=== PATIENT | female | born 1970 | race Caucasian/White ===

== ENCOUNTER 2016-10-14 08:11 | Emergency (ER) | payer OTHER ==
[~2016-10-14] VITALS: Wt 79.4 kg
[~2016-10-14 08:11] MED LIST: MOTRIN800 MG PO; NKHM; PEN-VEE K500 MG PO
[2016-10-14] MEDS ORDERED: LAMOTRIGINE100 MG PO (08:16)
[2016-10-14] MEDS ORDERED: PANTOPRAZOLE SO40 MG PO (08:16)
[2016-10-14] MEDS ORDERED: LEVOTHYROXINE0.1 M1 PO (08:16)
[2016-10-14 08:19] VITALS: BP 128/68
[2016-10-14 08:53] LABS: BASO % 0.6 % (0.0-1.0); EOS # 0.2 10*3/uL (0.0-0.4); EOS % 2.3 % (1.0-4.0); HEMATOCRIT 39.6 % (37.0-47.0); HEMOGLOBIN 13.1 g/dl (12.0-16.0); LYMPH # 2.8 10*3/uL (1.3-4.4); LYMPH % 43.5 % (27.0-41.0); MEAN CELL VOLUME 93.8 fl (81.0-99.0); MEAN CORPUSCULAR HGB CONC 33.1 g/dl (33.0-37.0); MEAN PLATELET VOLUME 9.7 fl (9.6-12.3); MONO # 0.4 10*3/uL (0.1-1.0); MONO % 6.3 % (3.0-9.0); NEUT # 3.1 10*3/uL (2.3-7.9); NEUT % 47.1 % (47.0-73.0); PLATELET COUNT AUTOMATED 341 10*3/uL (130-400); RED BLOOD COUNT 4.22 10*6/uL (4.10-5.10); RED CELL DISTRI WIDTH 14.3 % (0-14.5); WHITE BLOOD COUNT 6.5 10*3/uL (4.8-10.8)
[2016-10-14 09:08] LABS: ALBUMIN 3.6 gm/dl (3.1-4.5); ALKALINE PHOSPHATASE 84 U/L (45-117); BILIRUBIN, TOTAL 0.4 mg/dl (0.2-1.0); BUN 8 mg/dl (7-24); CARBON DIOXIDE 24 mmol/L (21-32); CHLORIDE 108 mmol/L (98-107); EST GLOM FILT AFRICAN AMERICAN > 60 ml/min; GLUCOSE 96 mg/dL (65-99); POTASSIUM 3.8 mmol/L (3.5-5.1); SGOT/AST 22 IU/L (3-35); SGPT/ALT 34 U/L (12-78); SODIUM 141 mmol/L (136-145)
[2016-10-14 09:20] LABS: BILIRUBIN NEGATIVE (NEGATIVE); BLOOD NEGATIVE (NEGATIVE); CLARITY CLEAR (CLEAR); COLOR YELLOW (YELLOW); GLUCOSE NEGATIVE (NEGATIVE); KETONE NEGATIVE (NEGATIVE); LEUKO ESTERASE NEGATIVE (NEGATIVE); NITRITE NEGATIVE (NEGATIVE); PH 6.5 (5.0-9.0); PROTEIN NEGATIVE (NEGATIVE); SPECIFIC GRAVITY <= 1.005 (1.005-1.030); UROBILINOGEN 0.2 E.U./dl (0.2-1.0)
[2016-10-14 09:31] LABS: RBC 0-2 rbc/hpf (0-2); URINE REFLEX COMMENT NO (NO); WBC 0-2 wbc/hpf (0-5)
== END 2016-10-14 10:19 | disposition home or self-care (01) ==
LOC: ED 08:11
PROVIDERS: Emergency Medicine
DX: R10.13 Epigastric pain (principal); M54.6 Pain in thoracic spine; F17.200 Nicotine dependence, unspecified, uncomplicated; Z88.6 Allergy status to analgesic agent; Z90.49 Acquired absence of other specified parts of digestive tract

== ENCOUNTER 2016-12-31 18:05 | Emergency (ER) | payer OTHER ==
[~2016-12-31] VITALS: Ht 165.1 cm; Wt 86.2 kg
[~2016-12-31 18:05] MED LIST changes: +LAMOTRIGINE100 MG PO; +LEVOTHYROXINE0.1 M1 PO; +PANTOPRAZOLE SO40 MG PO
[2016-12-31 18:16] VITALS: BP 115/71
[2016-12-31] MEDS ORDERED: ABILIFY5 MG PO (18:18)
[2016-12-31] MEDS ORDERED: NAPROSYN500 MG PO (18:30)
== END 2016-12-31 19:43 | disposition home or self-care (01) ==
LOC: ED 18:05
DX: S86.111A Strain of other muscle(s) and tendon(s) of posterior muscle group at lower leg level, right leg, initial encounter (principal); F17.200 Nicotine dependence, unspecified, uncomplicated; Z88.6 Allergy status to analgesic agent; Z90.49 Acquired absence of other specified parts of digestive tract; X58.XXXA Exposure to other specified factors, initial encounter; Y93.89 Activity, other specified; Y92.9 Unspecified place or not applicable; Y99.9 Unspecified external cause status

== ENCOUNTER 2017-12-28 12:32 | Emergency (ER) | payer OTHER ==
[~2017-12-28] VITALS: Ht 157.4 cm; Wt 79.4 kg
[2017-12-28 12:32] VITALS: BP 132/62
[~2017-12-28 12:32] MED LIST changes: +ABILIFY5 MG PO; +NAPROSYN500 MG PO
[2017-12-28] MEDS ORDERED: TOBRADEX 0.1%-0.5 ML OPH (12:54)
== END 2017-12-28 12:59 | disposition home or self-care (01) ==
LOC: ED 12:32
DX: H10.31 Unspecified acute conjunctivitis, right eye (principal); Z88.6 Allergy status to analgesic agent; Z79.899 Other long term (current) drug therapy

== ENCOUNTER 2021-02-08 15:23 | Emergency (ER) | payer OTHER ==
[~2021-02-08] VITALS: Wt 63.5 kg
[~2021-02-08 15:23] MED LIST changes: +ELIMITE 5%60 GM T; +PREDNISONE20 M1 PO; +TOBRADEX 0.1%-0.5 ML OPH; +VALTREX1000 MG PO
[2021-02-08 15:35] VITALS: BP 107/65
[2021-02-08] MEDS ORDERED: ZITHROMAX250 MG PO (17:35)
== END 2021-02-08 17:38 | disposition home or self-care (01) ==
LOC: ED 15:23
DX: J98.8 Other specified respiratory disorders (principal); Z20.822 Contact with and (suspected) exposure to COVID-19; Z98.51 Tubal ligation status; Z90.49 Acquired absence of other specified parts of digestive tract; Z79.899 Other long term (current) drug therapy

== ENCOUNTER 2021-07-15 17:59 | Emergency (ER) | payer OTHER ==
[~2021-07-15] VITALS: Wt 68.0 kg
[~2021-07-15 17:59] MED LIST changes: +ZITHROMAX250 MG PO
[2021-07-15 18:04] VITALS: BP 111/67
[2021-07-15 18:45] LABS: BILIRUBIN Negative (Negative); BLOOD 1+ (Negative); CLARITY Cloudy (Clear); COLOR Dark Yellow (Yellow); GLUCOSE Negative (Negative); KETONE Trace (Negative); LEUKO ESTERASE 2+ (Negative); NITRITE Positive (Negative); PH 5.5 (4.5-8.0); SPECIFIC GRAVITY 1.025 (1.001-1.030)
[2021-07-15 18:45] LABS: BASO % 0.2 % (0.0-1.0); EOS % 0.3 % (1.0-4.0); HEMATOCRIT 34.7 % (37.0-47.0); LYMPH # 1.4 10*3/uL (1.3-4.4); LYMPH % 13.7 % (27.0-41.0); MEAN CELL VOLUME 95.3 fl (81.0-99.0); MEAN CORPUSCULAR HGB CONC 32.6 g/dl (33.0-37.0); MEAN PLATELET VOLUME 9.8 fl (9.6-12.3); MONO # 0.9 10*3/uL (0.1-1.0); MONO % 8.7 % (3.0-9.0); NEUT # 7.7 10*3/uL (2.3-7.9); NEUT % 76.4 % (47.0-73.0); PLATELET COUNT AUTOMATED 221 10*3/uL (130-400); RED BLOOD COUNT 3.64 10*6/uL (4.10-5.10); RED CELL DISTRI WIDTH 13.2 % (0-14.5); WHITE BLOOD COUNT 10.1 10*3/uL (4.8-10.8)
[2021-07-15 18:52] LABS: BACTERIA 4+; WBC TNTC wbc/hpf (0-5)
[2021-07-15 19:00] LABS: ALBUMIN 2.9 gm/dl (3.1-4.5); CREATININE 1.31 mg/dL (0.55-1.02); POTASSIUM 3.5 mmol/L (3.5-5.1); TOTAL PROTEIN 7.1 gm/dL (6.4-8.2)
[2021-07-15] MEDS ORDERED: TYLENOL325 M3 PO (21:35)
[2021-07-15] MEDS ORDERED: IBU-200200 MG PO (21:36)
[2021-07-15] MEDS ORDERED: CIPRO500 MG PO (21:37)
== END 2021-07-15 21:39 | disposition home or self-care (01) ==
LOC: ED 17:59
PROVIDERS: Student in an Organized Health Care Education/Training Program
DX: N12 Tubulo-interstitial nephritis, not specified as acute or chronic (principal); L02.214 Cutaneous abscess of groin; Z79.899 Other long term (current) drug therapy

== ENCOUNTER 2022-08-24 17:48 | Emergency (ER) | payer OTHER ==
[~2022-08-24] VITALS: Ht 165.1 cm; Wt 68.0 kg
[~2022-08-24 17:48] MED LIST changes: +CIPRO500 MG PO; +IBU-200200 MG PO; +TYLENOL325 M3 PO
[2022-08-24 17:58] VITALS: BP 126/80
[2022-08-24 18:36] LABS: BILIRUBIN Negative (Negative); BLOOD Negative (Negative); CLARITY Clear (Clear); COLOR Yellow (Yellow); GLUCOSE Negative (Negative); KETONE Trace (Negative); LEUKO ESTERASE 2+ (Negative); NITRITE Negative (Negative); SPECIFIC GRAVITY 1.025 (1.001-1.030)
[2022-08-24 18:43] LABS: BASO % 0.4 % (0.0-1.0); EOS # 0.1 10*3/uL (0.0-0.4); HEMATOCRIT 40.5 % (37.0-47.0); LYMPH # 1.6 10*3/uL (1.3-4.4); MEAN CELL VOLUME 95.3 fl (81.0-99.0); MEAN CORPUSCULAR HGB 31.8 pg (27.0-31.0); MEAN CORPUSCULAR HGB CONC 33.3 g/dl (33.0-37.0); MEAN PLATELET VOLUME 9.2 fl (9.6-12.3); MONO # 0.4 10*3/uL (0.1-1.0); MONO % 5.2 % (3.0-9.0); NEUT # 5.2 10*3/uL (2.3-7.9); NEUT % 71.3 % (47.0-73.0); PLATELET COUNT AUTOMATED 252 10*3/uL (130-400); RED BLOOD COUNT 4.25 10*6/uL (4.10-5.10); RED CELL DISTRI WIDTH 12.7 % (0-14.5); WHITE BLOOD COUNT 7.3 10*3/uL (4.8-10.8)
[2022-08-24 18:49] LABS: WBC 21-30 wbc/hpf (0-5)
[2022-08-24 18:50] LABS: BACTERIA 1+
[2022-08-24 18:58] LABS: ALKALINE PHOSPHATASE 111 U/L (45-117); BUN 17 mg/dl (7-24); CHLORIDE 105 mmol/L (98-107); CREATININE 1.11 mg/dL (0.55-1.02); LIPASE 576 U/L (73-393); POTASSIUM 3.7 mmol/L (3.5-5.1); SGOT/AST 18 IU/L (3-35); SGPT/ALT 25 U/L (12-78); SODIUM 139 mmol/L (136-145); TOTAL PROTEIN 7.8 gm/dL (6.4-8.2)
[2022-08-24] MEDS ORDERED: ONDANSETRON4 MG SL (21:21)
[2022-08-24] MEDS ORDERED: SEPTDS PO (21:21)
[2022-08-24] MEDS ORDERED: ANAPROX DS550 MG PO (21:21)
== END 2022-08-24 21:24 | disposition home or self-care (01) ==
LOC: ED 17:48
PROVIDERS: Physician Assistant
DX: N39.0 Urinary tract infection, site not specified (principal); R74.8 Abnormal levels of other serum enzymes; F17.200 Nicotine dependence, unspecified, uncomplicated; Z87.442 Personal history of urinary calculi; Z79.899 Other long term (current) drug therapy; Z98.51 Tubal ligation status; Z90.49 Acquired absence of other specified parts of digestive tract

== ENCOUNTER 2024-12-20 18:07 | Emergency (ER) | payer OTHER ==
[~2024-12-20] VITALS: Wt 77.1 kg
[~2024-12-20 18:07] MED LIST changes: +ANAPROX DS550 MG PO; +ONDANSETRON4 MG SL; +SEPTDS PO
[2024-12-20 18:29] VITALS: BP 122/77
[2024-12-20] MEDS ORDERED: ACETAMINOPHEN 325 MG TAB PO ONE (18:45)
[2024-12-20 19:14] LABS: BASO % 0.3 % (0.0-1.0); EOS % 0.2 % (1.0-4.0); HEMATOCRIT 39.4 % (37.0-47.0); MEAN CELL VOLUME 94.3 fl (81.0-99.0); MEAN CORPUSCULAR HGB 31.3 pg (27.0-31.0); MEAN CORPUSCULAR HGB CONC 33.2 g/dl (33.0-37.0); MEAN PLATELET VOLUME 9.9 fl (9.6-12.3); MONO # 0.8 10*3/uL (0.1-1.0); MONO % 8.9 % (3.0-9.0); NEUT # 6.9 10*3/uL (2.3-7.9); NEUT % 78.4 % (47.0-73.0); PLATELET COUNT AUTOMATED 300 10*3/uL (130-400); RED BLOOD COUNT 4.18 10*6/uL (4.10-5.10); RED CELL DISTRI WIDTH 12.5 % (0-14.5); WHITE BLOOD COUNT 8.8 10*3/uL (4.8-10.8)
[2024-12-20 19:45] LABS: ALKALINE PHOSPHATASE 124 U/L (46-116); BUN 13 mg/dl (9-23); CHLORIDE 104 mmol/L (98-107); LIPASE 34 U/L (12-53); POTASSIUM 3.7 mmol/L (3.4-5.1); SGPT/ALT 16 U/L (5-49); TOTAL PROTEIN 7.7 gm/dL (6.0-8.0)
[2024-12-20 21:54] LABS: BILIRUBIN Negative (Negative); BLOOD Trace-Lysed (Negative); CLARITY Clear (Clear); COLOR Yellow (Yellow); GLUCOSE Negative (Negative); KETONE Negative (Negative); LEUKO ESTERASE 3+ (Negative); NITRITE Positive (Negative); PH 5.5 (4.5-8.0); UROBILINOGEN 0.2 E.U./dl (0.0-1.0)
[2024-12-20 22:07] LABS: BACTERIA 3+; WBC 41-50 wbc/hpf (0-5)
[2024-12-20] MEDS ORDERED: SEPTDS PO (22:11)
[2024-12-20] MEDS ORDERED: Sulfamethoxazole/Trimethopri 1 TAB TAB PO ONE (22:15)
== END 2024-12-20 22:20 | disposition home or self-care (01) ==
LOC: ED 18:07
PROVIDERS: Physician Assistant Medical
DX: N39.0 Urinary tract infection, site not specified (principal); J06.9 Acute upper respiratory infection, unspecified; B97.89 Other viral agents as the cause of diseases classified elsewhere; Z20.822 Contact with and (suspected) exposure to COVID-19

== ENCOUNTER → 2025-09-25 | Outpatient (CLI) | payer OTHER | END | disposition home or self-care (01) | LOC: RAD 13:42 | PROVIDERS: ATTEND Counselor Addiction (Substance Use Disorder) | DX: R05.9 Cough, unspecified (principal) ==